=== PATIENT | female | born 1995 | race Caucasian/White ===

== ENCOUNTER 2018-11-22 11:26 | Emergency (ER) | payer MEDICAID ==
[~2018-11-22] VITALS: Ht 162.6 cm; Wt 70.0 kg
[~2018-11-22 11:26] MED LIST: IBUP800T48 PO
[2018-11-22 11:52] VITALS: BP 110/67; PULSE 69; RESP 16; Ht 162.6 cm; Wt 70.0 kg
== END 2018-11-22 12:47 | disposition home or self-care (01) ==
LOC: E/R 11:26
DX: S00.33XA Contusion of nose, initial encounter (principal); W01.0XXA Fall on same level from slipping, tripping and stumbling without subsequent striking against object, initial encounter; Y92.009 Unspecified place in unspecified non-institutional (private) residence as the place of occurrence of the external cause
CPT/HCPCS: 99282